=== PATIENT | female | born 1985 | race Caucasian/White ===

== ENCOUNTER 2016-03-21 15:05 | Emergency (ER) | payer OTHER ==
[2016-03-21] MEDS ORDERED: MAG HYDROX/AL HYDROX/SIMETH SUSP 30 ML UDCUP PO ONE (15:25)
[2016-03-21] MEDS ORDERED: LIDOCAINE 2% VISCOUS SOLN 20 ML UDCUP PO ONE (15:25)
--- NOTE | 2016-03-21 15:25 | ER Document Report ---
ED Medical Screen (RME) - General Chief Complaint: Epigastric Pain Stated Complaint: UPPER ABDOMINAL PAIN Time seen by provider: 15:24 Mode of Arrival: Ambulatory Information source: Patient Notes: 31-year-old female complaining of epigastric abdominal pain that started 2 days ago. It causes nausea. Radiation. No fever or chills. No diarrhea. She has a history of achalasia which was repaired one year ago. Occasional alcohol. TRAVEL OUTSIDE OF THE [place] IN LAST 30 DAYS: No - Related Data Allergies/Adverse Reactions: morphine [Morphine] Allergy (Verified 08/04/14 09:46) Past Medical History - Past Medical History Cardiac Medical History: Denies: Hx Coronary Artery Disease, Hx Heart Attack, Hx Hypertension Pulmonary Medical History: Denies: Hx Asthma, Hx Bronchitis, Hx COPD, Hx Pneumonia Neurological Medical History: Denies: Hx Cerebrovascular Accident, Hx Seizures Musculoskeltal Medical History: Reports Hx Arthritis - RIGHT HAND Past Surgical History: Reports: Hx Section. Denies: Hx Hysterectomy - Immunizations Hx Diphtheria, Pertussis, Tetanus Vaccination: Yes Physical Exam - Vital signs Vitals: Temp Pulse Resp BP Pulse Ox 98.8 F 85 16 127/85 H 99 03/21/16 15:13 03/21/16 15:13 03/21/16 15:13 03/21/16 15:13 03/21/16 15:13 Course - Vital Signs Vital signs: Temp Pulse Resp BP Pulse Ox 98.8 F 85 16 127/85 H 99 03/21/16 15:13 03/21/16 15:13 03/21/16 15:13 03/21/16 15:13 03/21/16 15:13
[2016-03-21 15:46] LABS: ABSOLUTE EOSINOPHILS # (AUTO) 0.1 10^3/uL (0.0-0.6); ABSOLUTE LYMPHOCYTES (AUTO) 3.2 10^3/uL (0.5-4.7); ABSOLUTE MONOCYTES (AUTO) 0.6 10^3/uL (0.1-1.4); BASOPHILS % (AUTO) 0.5 % (0-2); EOSINOPHILS % (AUTO) 1.9 % (0-6); HEMATOCRIT 41.3 % (36.0-47.0); HGB HCT DIFFERENCE 0.7; LYMPHOCYTES % (AUTO) 39.7 % (13-45); MEAN CORPUSCULAR HEMOGLOBIN 30.9 pg (27.0-33.4); MEAN CORPUSCULAR HGB CONC 33.9 g/dL (32.0-36.0); MEAN CORPUSCULAR VOLUME 91 fl (80-97); MONOCYTES % (AUTO) 7.1 % (3-13); RED BLOOD COUNT 4.53 10^6/uL (3.72-5.28); RED CELL DISTRIBUTION WIDTH 12.5 % (11.5-14.0); SEGMENTED NEUTROPHILS % (AUTO) 50.8 % (42-78)
[2016-03-21 16:01] LABS: APPEARANCE,URINE CLEAR; BILIRUBIN,URINE NEGATIVE (NEGATIVE); GLUCOSE, URINE NEGATIVE (NEGATIVE); KETONES,URINE NEGATIVE (NEGATIVE); LEUKOCYTE ESTERASE,URINE NEGATIVE (NEGATIVE); NITRITE,URINE NEGATIVE (NEGATIVE); PROTEIN,URINE NEGATIVE (NEGATIVE); URINE SPECIFIC GRAVITY 1.008; UROBILINOGEN,URINE NEGATIVE mg/dL (<2.0)
[2016-03-21 16:12] LABS: ALANINE AMINOTRANSFERASE 28 U/L (9-52); ALBUMIN 4.1 g/dL (3.5-5.0); ALKALINE PHOSPHATASE 80 U/L (38-126); ANION GAP 12 (5-19); ASPARTATE AMINO TRANSFERASE 22 U/L (14-36); BILIRUBIN,TOTAL 0.3 mg/dL (0.2-1.3); BLOOD UREA NITROGEN 8 mg/dL (7-20); CALCIUM 9.9 mg/dL (8.4-10.2); CARBON DIOXIDE 30 mmol/L (22-30); CHLORIDE 103 mmol/L (98-107); CREATININE RESULT 0.69 mg/dL (0.52-1.25); GLUCOSE 91 mg/dL (75-110); LIPASE 76.3 U/L (23-300); POTASSIUM 4.1 mmol/L (3.6-5.0); SODIUM 144.6 mmol/L (137-145); TOTAL PROTEIN 7.3 g/dL (6.3-8.2)
--- NOTE | 2016-03-21 19:24 | ER Document Report ---
ED GI/ - General Chief Complaint: Epigastric Pain Stated Complaint: UPPER ABDOMINAL PAIN Mode of Arrival: Ambulatory Information source: Patient Notes: 31-year-old female presents to the emergency department complaining of mid upper abdomen/epigastric pain over the last 2 days. Patient reports history of esophageal achalasia with procedure on 12/24 at [facility]. Reports has had intermittent similar symptoms yesterday approximately once per month since procedure which self resolved however current episode has been persistent and worse in intensity than her previous episodes. Describes pain as sharp to mid epigastric area and states "feels like there is something stuck". Reports symptoms are worse when eating or drinking. Denies fever, nausea or vomiting, chest pain, hematemesis, or shortness of breath. TRAVEL OUTSIDE OF THE [place] IN LAST 30 DAYS: No - HPI Patient complains to provider of: Abdominal pain Onset: Yesterday Timing/Duration: Intermittent, Persistent Quality of pain: Burning, Fullness, Sharp Severity at maximum: Moderate Severity in ED: Almost gone Pain Level: 1 Location: Epigastric Similar symptoms previously: Yes Recently seen / treated by doctor: No - Related Data Allergies/Adverse Reactions: morphine [Morphine] Allergy (Verified 08/04/14 09:46) Past Medical History - General Information source: Patient - Social History Smoking Status: Never Smoker Frequency of alcohol use: None Drug Abuse: None Lives with: Family Family History: Reviewed & Not Pertinent Patient has suicidal ideation: No Patient has homicidal ideation: No - Past Medical History Cardiac Medical History: Denies: Hx Coronary Artery Disease, Hx Heart Attack, Hx Hypertension Pulmonary Medical History: Denies: Hx Asthma, Hx Bronchitis, Hx COPD, Hx Pneumonia Neurological Medical History: Denies: Hx Cerebrovascular Accident, Hx Seizures GI Medical History: Reports: Hx Gastroesophageal Reflux Disease, Hx Hiatal Hernia, Other - Achalasia Musculoskeltal Medical History: Reports Hx Arthritis - RIGHT HAND Past Surgical History: Reports: Hx Abdominal Surgery - Esophageal achalasia repair, Hx Section. Denies: Hx Hysterectomy - Immunizations Hx Diphtheria, Pertussis, Tetanus Vaccination: Yes Review of Systems - Review of Systems Constitutional: No symptoms reported EENT: No symptoms reported Cardiovascular: No symptoms reported Respiratory: No symptoms reported Gastrointestinal: See HPI Genitourinary: No symptoms reported Female Genitourinary: No symptoms reported Musculoskeletal: No symptoms reported Skin: No symptoms reported Hematologic/Lymphatic: No symptoms reported Neurological/Psychological: No symptoms reported -: Yes All other systems reviewed and negative Physical Exam - Vital signs Vitals: Temp Pulse Resp BP Pulse Ox 98.8 F 85 16 127/85 H 99 03/21/16 15:13 03/21/16 15:13 03/21/16 15:13 03/21/16 15:13 03/21/16 15:13 Interpretation: Normal - General General appearance: Appears well, Alert In distress: None - HEENT Head: Normocephalic, Atraumatic Eyes: Normal Pupils: PERRL - Respiratory Respiratory status: No respiratory distress Chest status: Nontender Breath sounds: Normal Chest palpation: Normal - Cardiovascular Rhythm: Regular Heart sounds: Normal auscultation Murmur: No Pulses: Normal: Radial Normal capillary refill: Yes - Abdominal Inspection: Normal Distension: No distension Bowel sounds: Normal Tenderness: Nontender - No epigastric/upper abdominal tenderness with palpation Organomegaly: No organomegaly - Back Back: Normal, Nontender - Extremities General upper extremity: Normal inspection, Normal color, Normal ROM General lower extremity: Normal inspection, Normal color, Normal ROM, Normal weight bearing - Neurological Neuro grossly intact: Yes Cognition: Normal Orientation: AAOx4 Tsering Coma Scale Eye Opening: Spontaneous Tsering Coma Scale Verbal: Oriented Tsering Coma Scale Motor: Obeys Commands Kyle Coma Scale Total: 15 Speech: Normal Motor strength normal: LUE, RUE, LLE, RLE Sensory: Normal - Psychological Associated symptoms: Normal affect, Normal mood - Skin Skin Temperature: Warm Skin Moisture: Dry Skin Color: Normal Skin Turgor: Elastic Course - Re-evaluation Re-evalutation: 03/21/16 19:30 Patient hemodynamically stable, in no distress, afebrile. Tolerating by mouth fluids without difficulty or vomiting. Labs unremarkable. Barium swallow/ esophagram was obtained after consulting patient presentation and hx with ED physician Dr. Lock and GI on-call Dr. Ko. Esophagram showed esophageal spasm, small hiatal hernia, and postop changes without ulceration or other complications per radiologist Dr. Damon. Patient states has taken nitroglycerin in the past with undesirable side effects. Prescribe H2 pete and PPI. Patient appears stable for discharge and agrees with home care, follow -up with GI, ED return precautions. Findings and plan discussed with ED physician Dr. Hayde who concurs with evaluation and treatment. - Vital Signs Vital signs: Temp Pulse Resp BP Pulse Ox 98.8 F 85 16 127/85 H 99 03/21/16 15:13 03/21/16 15:13 03/21/16 15:13 03/21/16 15:13 03/21/16 15:13 - Laboratory Result Diagrams: 03/21/16 15:25 03/21/16 15:25 Laboratory results interpreted by me: 03/21/16 15:25 Urine Blood MODERATE H - Diagnostic Test Radiology reviewed: Image reviewed, Reports reviewed Discharge - Discharge Clinical Impression: Esophageal spasm Condition: Stable Disposition: HOME, SELF-CARE Instructions: Esophageal Spasm ([facility]), Acid-Suppressing Medication ([facility]), Prilosec (Acid Pump Inhibitor) ([facility]) Additional Instructions: Drink warmed liquids and soft foods. Follow-up with GI tomorrow as discussed. Call [facility] GI clinic at [phone] for appointment. You may follow-up with the GI specialist provided if you're unable to follow up at the [facility] GI clinic. Return to the emergency department for any worsening symptoms or concerns. Prescriptions: Omeprazole Magnesium [Prilosec Otc] 20 mg PO DAILY #15 tablet. Ranitidine HCl [Zantac 150 mg Tablet] 150 mg PO BID #30 tablet Forms: Return to Work Referrals: HINA KO MD [ACTIVE STAFF] - Follow up tomorrow
[2016-03-21 20:17] VITALS: BP 124/90
== END 2016-03-21 19:45 | disposition home or self-care (01) ==
LOC: ER 15:05
DX: K22.4 Dyskinesia of esophagus (principal); K44.9 Diaphragmatic hernia without obstruction or gangrene; R10.13 Epigastric pain; Z98.890 Other specified postprocedural states; Z88.5 Allergy status to narcotic agent
CPT/HCPCS: 99284; 36415; 83690; 84703; 85025; 80053; 81001; 74220; J3490

== ENCOUNTER 2016-03-27 11:21 | Day surgery (SDC) | payer OTHER ==
[~2016-03-27 11:21] MED LIST: PROPOFOL INJ 200 MG/20 ML VIAL IV ONE
--- NOTE | 2016-03-27 12:27 | Operative Report ---
Operative Report DATE OF SURGERY: 03/27/16 Operative Report: The risks benefits and alternatives of the procedure explained to the patient in detail and informed consent is obtained that GIF Olympus video scope was inserted into the patient's mouth and hypopharynx the esophagus is identified intubated and insufflated the scope was then advanced through the esophagus stomach and duodenum retroflexion maneuver is done the esophagus stomach and first and second portions of the duodenum examined PREOPERATIVE DIAGNOSIS: Epigastric pain, question Maria Isabel fundoplication, patient states that she had achalasia POSTOPERATIVE DIAGNOSIS: Maria Isabel fundoplication visualized. Gastritis. No ulcers noted OPERATION: EGD with biopsy SURGEON: HINA KO ANESTHESIA: LMAC TISSUE REMOVED OR ALTERED: Gastric specimens x2 COMPLICATIONS: None. ESTIMATED BLOOD LOSS: none. INTRAOPERATIVE FINDINGS: Normal, patent esophagus. Gastritis. First and second portions of the duodenum normal PROCEDURE: Patient tolerated the procedure well. No immediate postprocedure complications are noted. Patient is discharged in good condition. Discharge date 03/27/2016. Discharge diet: Regular. Discharge activity: Regular. Patient does have a 2-3 week follow-up to discuss findings. We'll follow-up on biopsies. Patient is instructed to go to the emergency room or call the office should there be any further problems or questions.
[2016-03-27 13:07] VITALS: BP 111/62
== END 2016-03-27 13:00 | disposition home or self-care (01) ==
LOC: END 11:21
PROVIDERS: ATTEND Internal Medicine Gastroenterology
PROC: 0DB68ZX Excision of Stomach, Via Natural or Artificial Opening Endoscopic, Diagnostic (ICD-10-PCS; principal; 2016-03-27 15:00)
DX: K29.50 Unspecified chronic gastritis without bleeding (principal); Z79.1 Long term (current) use of non-steroidal anti-inflammatories (NSAID); Z88.5 Allergy status to narcotic agent
CPT/HCPCS: 43239; 88342 ×2; 88305 ×2; J2704; 740

== ENCOUNTER 2017-08-19 15:06 | Emergency (ER) | payer OTHER ==
--- NOTE | 2017-08-19 15:33 | ER Document Report ---
ED Medical Screen (RME) - General Chief Complaint: Chest Pain Stated Complaint: SHARP CHEST PAIN Time Seen by Provider: 08/19/17 15:29 Mode of Arrival: Ambulatory Information source: Patient Notes: 32-year-old female with a history of achalasia status post laparoscopic surgery correction ([facility]), active smoker (half pack per day) presents to the emergency room with epigastric pain radiating to the back. Patient denies any history of gallstones, peptic ulcer disease. The discomforts been going on since (3 days ago). Patient is currently on Zantac. Last normal menstrual period 1 month ago. 1 para 1. Patient's abdomen is soft with no appreciable tenderness in triage. I have greeted and performed a rapid initial assessment of this patient. A comprehensive ED assessment and evaluation of the patient, analysis of test results and completion of medical decision making process we will be contacted by additional ED providers. TRAVEL OUTSIDE OF THE [place] IN LAST 30 DAYS: No - Related Data Allergies/Adverse Reactions: morphine [Morphine] Allergy (Mild, Verified 08/19/17 15:22) BRITTANI MEDINA Past Medical History - Social History Chew tobacco use (# tins/day): No Frequency of alcohol use: Occasional Drug Abuse: None - Past Medical History Cardiac Medical History: Denies: Hx Coronary Artery Disease, Hx Heart Attack, Hx Hypertension Pulmonary Medical History: Denies: Hx Asthma, Hx Bronchitis, Hx COPD, Hx Pneumonia Neurological Medical History: Denies: Hx Cerebrovascular Accident, Hx Seizures Renal/ Medical History: Denies: Hx Peritoneal Dialysis GI Medical History: Reports: Hx Gastroesophageal Reflux Disease, Hx Hiatal Hernia Musculoskeltal Medical History: Reports Hx Arthritis - RIGHT HAND Past Surgical History: Reports: Hx Abdominal Surgery - Esophageal achalasia repair, Hx Section. Denies: Hx Hysterectomy - Immunizations Hx Diphtheria, Pertussis, Tetanus Vaccination: Yes Physical Exam - Vital signs Vitals: Temp Pulse Resp BP Pulse Ox 98.8 F 77 16 139/88 H 98 08/19/17 15:20 08/19/17 15:20 08/19/17 15:20 08/19/17 15:20 08/19/17 15:20 Course - Vital Signs Vital signs: Temp Pulse Resp BP Pulse Ox 98.8 F 77 16 139/88 H 98 08/19/17 15:20 08/19/17 15:20 08/19/17 15:20 08/19/17 15:20 08/19/17 15:20
--- NOTE | 2017-08-19 15:53 | RADIOLOGY REPORT (SQ) ---
EXAM DESCRIPTION: CHEST 2 VIEWS COMPLETED DATE/TIME: 08/19/2017 3:41 pm REASON FOR STUDY: epigastric pain COMPARISON: Abdominal series 11/05/2011. EXAM PARAMETERS: NUMBER OF VIEWS: two views TECHNIQUE: Digital Frontal and Lateral radiographic views of the chest acquired. RADIATION DOSE: NA LIMITATIONS: none FINDINGS: LUNGS AND PLEURA: No consolidation, pneumothorax or pleural effusion. MEDIASTINUM AND HILAR STRUCTURES: No masses or contour abnormalities. HEART AND VASCULAR STRUCTURES: Heart normal size. No evidence for failure. BONES: No acute findings. HARDWARE: None in the chest. IMPRESSION: No acute radiographic finding in the chest. TECHNICAL DOCUMENTATION: JOB ID: [id number] 2010 [employer]- All Rights Reserved Reading location - IP/workstation name: [email or web address]
[2017-08-19 15:58] LABS: ABSOLUTE EOSINOPHILS # (AUTO) 0.1 10^3/uL (0.0-0.6); ABSOLUTE MONOCYTES (AUTO) 0.7 10^3/uL (0.1-1.4); BASOPHILS % (AUTO) 0.6 % (0-2); EOSINOPHILS % (AUTO) 1.2 % (0-6); HEMATOCRIT 44.4 % (36.0-47.0); HEMOGLOBIN 15.1 g/dL (12.0-15.5); LYMPHOCYTES % (AUTO) 25.5 % (13-45); MEAN CORPUSCULAR HEMOGLOBIN 32.4 pg (27.0-33.4); MEAN CORPUSCULAR HGB CONC 33.9 g/dL (32.0-36.0); MEAN CORPUSCULAR VOLUME 96 fl (80-97); MONOCYTES % (AUTO) 8.7 % (3-13); PLATELET COUNT 295 10^3/uL (150-450); RED BLOOD COUNT 4.65 10^6/uL (3.72-5.28); RED CELL DISTRIBUTION WIDTH 13.3 % (11.5-14.0); TOTAL CELLS COUNTED % (AUTO) 100 %; WHITE BLOOD COUNT 7.9 10^3/uL (4.0-10.5)
[2017-08-19 16:16] LABS: ALANINE AMINOTRANSFERASE 29 U/L (9-52); ALBUMIN 4.7 g/dL (3.5-5.0); ALKALINE PHOSPHATASE 108 U/L (38-126); ANION GAP 13 (5-19); ASPARTATE AMINO TRANSFERASE 29 U/L (14-36); BILIRUBIN,DIRECT 0.4 mg/dL (0.0-0.4); BILIRUBIN,TOTAL 0.8 mg/dL (0.2-1.3); BLOOD UREA NITROGEN 9 mg/dL (7-20); CARBON DIOXIDE 27 mmol/L (22-30); CHLORIDE 104 mmol/L (98-107); GLUCOSE 87 mg/dL (75-110); LIPASE 50.5 U/L (23-300); POTASSIUM 4.7 mmol/L (3.6-5.0); SODIUM 143.8 mmol/L (137-145); TOTAL PROTEIN 7.7 g/dL (6.3-8.2)
--- NOTE | 2017-08-19 17:11 | ER Document Report ---
ED General - General Chief Complaint: Chest Pain Stated Complaint: SHARP CHEST PAIN Time Seen by Provider: 08/19/17 15:29 Mode of Arrival: Ambulatory Information source: Patient Notes: 32-year-old female presents emergency department with a 3 day history of sharp and stabbing sensation in the left upper quadrant of the abdomen. Patient states that it is intermittent in nature. She denies any alleviating or exacerbating factors. She is having some associated nausea but denies any vomiting, diarrhea, constipation, dysuria, hematuria. Patient states her last menstrual period was 2 weeks ago. Patient does have a history of achalasia. She denies any other medical problems. TRAVEL OUTSIDE OF THE [place] IN LAST 30 DAYS: No - HPI Patient complains to provider of: LUQ abdominal pain Onset: Last week Onset/Duration: Gradual Severity: None Pain Level: 4 Associated symptoms: Nausea Exacerbated by: Denies Relieved by: Denies Similar symptoms previously: No Recently seen / treated by doctor: No - Related Data Allergies/Adverse Reactions: morphine [Morphine] Allergy (Mild, Verified 08/19/17 15:22) BRITTANI MEDINA Past Medical History - General Information source: Patient - Social History Smoking Status: Current Some Day Smoker Chew tobacco use (# tins/day): No Frequency of alcohol use: Occasional Drug Abuse: None Family History: Reviewed & Not Pertinent Patient has suicidal ideation: No Patient has homicidal ideation: No - Past Medical History Cardiac Medical History: Denies: Hx Coronary Artery Disease, Hx Heart Attack, Hx Hypertension Pulmonary Medical History: Denies: Hx Asthma, Hx Bronchitis, Hx COPD, Hx Pneumonia Neurological Medical History: Denies: Hx Cerebrovascular Accident, Hx Seizures Renal/ Medical History: Denies: Hx Peritoneal Dialysis GI Medical History: Reports: Hx Gastroesophageal Reflux Disease, Hx Hiatal Hernia Musculoskeltal Medical History: Reports Hx Arthritis - RIGHT HAND Past Surgical History: Reports: Hx Abdominal Surgery - Esophageal achalasia repair, Hx Section. Denies: Hx Hysterectomy - Immunizations Hx Diphtheria, Pertussis, Tetanus Vaccination: Yes Review of Systems - Review of Systems Constitutional: No symptoms reported EENT: No symptoms reported Cardiovascular: No symptoms reported Respiratory: No symptoms reported Gastrointestinal: Abdominal pain, Nausea Genitourinary: No symptoms reported Musculoskeletal: No symptoms reported Skin: No symptoms reported Neurological/Psychological: No symptoms reported -: Yes All other systems reviewed and negative Physical Exam - Vital signs Vitals: Temp Pulse Resp BP Pulse Ox 98.8 F 77 16 139/88 H 98 08/19/17 15:20 08/19/17 15:20 08/19/17 15:20 08/19/17 15:20 08/19/17 15:20 Interpretation: Normal - Notes Notes: PHYSICAL EXAMINATION: GENERAL: Well-appearing, well-nourished and in no acute distress. HEAD: Atraumatic, normocephalic. EYES: Pupils equal round and reactive to light, extraocular movements intact, conjunctiva are normal. ENT: Nares patent, oropharynx clear without exudates. Moist mucous membranes. NECK: Normal range of motion, supple without lymphadenopathy LUNGS: Breath sounds clear to auscultation bilaterally and equal. No wheezes rales or rhonchi. HEART: Regular rate and rhythm without murmurs ABDOMEN: Soft, tenderness to palpation in the LUQ. Nondistended abdomen. No guarding, no rebound. Normal active bowel sounds Female : deferred Musculoskeletal: Normal range of motion, no pitting or edema. No cyanosis. NEUROLOGICAL: Cranial nerves grossly intact. Normal speech, normal gait. Normal sensory, motor exams PSYCH: Normal mood, normal affect. SKIN: Warm, Dry, normal turgor, no rashes or lesions noted. Course - Re-evaluation Re-evalutation: 08/19/17 18:36 Labs and imaging obtained. No acute process was identified. X-ray was unremarkable. Ultrasound of the abdomen was done and did not show an acute process. Patient was given Pepcid, GI cocktail, Phenergan. Patient states that the medication has not help significantly with her left upper quadrant pain. Patient offered CT. Patient declines a CT at this time. Patient states that she will follow-up outpatient with her primary care physician. She was told to continue taking her medication as directed, to follow-up with her primary care physician this week, and to return to the emergency department for worsening symptoms. Patient is agreeable with plan of care. - Vital Signs Vital signs: Temp Pulse Resp BP Pulse Ox 98.8 F 77 16 139/88 H 98 08/19/17 15:20 08/19/17 15:20 08/19/17 15:20 08/19/17 15:20 08/19/17 15:20 - Laboratory Result Diagrams: 08/19/17 15:45 06/10/18 15:45 - EKG Interpretation by Me EKG shows normal: Sinus rhythm Rate: Normal - Ventricular rate 74, QRS duration 76, QTC 395, normal sinus rhythm, no ischemic changes Discharge - Discharge Clinical Impression: Left upper quadrant abdominal pain of unknown etiology Condition: Stable Disposition: HOME, SELF-CARE Instructions: Abdominal Pain ([facility]) Additional Instructions: Take over the counter medication for symptom relief. Follow up with your primary care physician this week. Return to the emergency department for worsening symptoms. Forms: Parent Work Note Referrals: ERICK VAUGHAN DO [Primary Care Provider] - Follow up as needed
[2017-08-19] MEDS ORDERED: MAG HYDROX/AL HYDROX/SIMETH SUSP 30 ML UDCUP PO ONE (17:16)
[2017-08-19] MEDS ORDERED: LIDOCAINE 2% VISCOUS SOLN 20 ML UDCUP PO ONE (17:16)
[2017-08-19] MEDS ORDERED: ONDANSETRON HCL INJ/PF 4 MG/2 ML SDV IV ONE (17:16)
[2017-08-19] MEDS ORDERED: METOCLOPRAMIDE HCL ORAL SOLN 10 MG/10 ML UDCUP PO ONE (17:16)
[2017-08-19] MEDS ORDERED: FAMOTIDINE INJ/PF 20 MG/2 ML SDV IV ONE (17:16)
[2017-08-19] MEDS ORDERED: PROMETHAZINE HCL INJ 25 MG/1 ML VIAL IV ONE (17:18)
--- NOTE | 2017-08-19 17:23 | RADIOLOGY REPORT (SQ) ---
EXAM DESCRIPTION: U/S ABDOMEN LIMITED W/O DOP COMPLETED DATE/TIME: 08/19/2017 4:57 pm REASON FOR STUDY: upper abdominal pain COMPARISON: None. TECHNIQUE: Grayscale images acquired of the right upper quadrant and recorded on PACS. Additional se lected color Doppler and spectral images recorded. LIMITATIONS: Acoustical interference from fat or from air in the bowel. FINDINGS: PANCREAS: The pancreas is partially obscured by overlying bowel gas. The visualized pancr eas in the midline is unremarkable. LIVER: Measures 13 cm. There is increased echogenicity, suggestive of fatty infiltration. LIVER VASCULATURE: Normal directional flow of the main portal vein. GALLBLADDER: No stones. Normal wall thickness. No pericholecystic fluid. ULTRASOUND-DETECTED COURTNEY'S SIGN: Negative. INTRAHEPATIC DUCTS AND COMMON DUCT: CBD and intrahepatic ducts normal caliber. INFERIOR VENA CAVA: Obscured by overlying bowel gas. AORTA: No aneurysm at the visualized segments. RIGHT KIDNEY: Measures 11.8 cm in length. Normal echogenicity. No hydronephrosis. No calcifications. PERITONEAL CAVITY AND RIGHT PLEURAL SPACE: No ascites or effusion. IMPRESSION: No cholelithiasis or biliary ductal dilation. Fatty infiltration of the liver. TECHNICAL DOCUMENTATION: JOB ID: [id number] 2010 [employer]- All Rights Reserved Reading location - IP/workstation name: [email or web address]
[2017-08-19] MEDS ORDERED: FAMOTIDINE 20 MG TABLET PO ONE (17:31)
[2017-08-19 18:40] VITALS: BP 123/92
--- NOTE | 2017-08-20 07:35 | EKG REPORT ---
SEVERITY:- NORMAL ECG - SINUS RHYTHM : Confirmed by: Mychal Snider MD 20-Aug-2017 07:34:52
== END 2017-08-19 18:45 | disposition home or self-care (01) ==
LOC: ER 15:06
DX: R10.12 Left upper quadrant pain (principal); R10.812 Left upper quadrant abdominal tenderness; R11.0 Nausea; F17.200 Nicotine dependence, unspecified, uncomplicated; Z87.19 Personal history of other diseases of the digestive system; Z88.5 Allergy status to narcotic agent
CPT/HCPCS: 93005; 99285; 36415; 84702; 83690; 85025; 80053; 71046; 76705; 93010; J3490

== ENCOUNTER 2019-02-10 15:16 | Emergency (ER) | payer OTHER ==
[2019-02-10] MEDS ORDERED: ONDANSETRON HCL INJ/PF 4 MG/2 ML SDV IV ONE (16:19)
[2019-02-10] MEDS ORDERED: NORMAL SALINE 1000 ML 1,000 ML IV ONE (16:19)
--- NOTE | 2019-02-10 16:20 | ER Document Report ---
ED Medical Screen (RME) - General Chief Complaint: Abdominal Pain Stated Complaint: FLANK PAIN Time Seen by Provider: 02/10/19 16:13 Primary Care Provider: ERICK VAUGHAN DO [Primary Care Provider] - Follow up as needed Information source: Patient Notes: Patient presents complaining of right flank pain that radiates around to right lower quadrant and lower pelvic area. Patient reports pain started 2 days ago. Patient does report nausea and decreased appetite. No vomiting or diarrhea. No fever. No urinary symptoms. I have greeted and performed a rapid initial assessment of this patient. A comprehensive ED assessment and evaluation of the patient, analysis of test results and completion of the medical decision making process will be conducted by additional ED providers. TRAVEL OUTSIDE OF THE [place] IN LAST 30 DAYS: No - Related Data Allergies/Adverse Reactions: morphine [Morphine] Allergy (Mild, Verified 08/19/17 15:22) BRITTANI MEDINA Home Medications: No home medications Past Medical History - Social History Chew tobacco use (# tins/day): No Frequency of alcohol use: Occasional Drug Abuse: None - Past Medical History Cardiac Medical History: Denies: Hx Coronary Artery Disease, Hx Heart Attack, Hx Hypertension Pulmonary Medical History: Denies: Hx Asthma, Hx Bronchitis, Hx COPD, Hx Pneumonia Neurological Medical History: Denies: Hx Cerebrovascular Accident, Hx Seizures Renal/ Medical History: Denies: Hx Peritoneal Dialysis GI Medical History: Reports: Hx Gastroesophageal Reflux Disease, Hx Hiatal Hernia Musculoskeltal Medical History: Reports Hx Arthritis - RIGHT HAND Past Surgical History: Reports: Hx Abdominal Surgery - Esophageal achalasia repair, Hx Section. Denies: Hx Hysterectomy - Immunizations Hx Diphtheria, Pertussis, Tetanus Vaccination: Yes Physical Exam - Vital signs Vitals: Temp Pulse Resp BP Pulse Ox 99.1 F 84 20 163/92 H 100 02/10/19 15:26 02/10/19 15:26 02/10/19 15:26 02/10/19 15:26 02/10/19 15:26 - Abdominal Tenderness: Tender - Lower pelvic, right lower quadrant tenderness Course - Vital Signs Vital signs: Temp Pulse Resp BP Pulse Ox 99.1 F 84 20 163/92 H 100 02/10/19 15:26 02/10/19 15:26 02/10/19 15:26 02/10/19 15:26 02/10/19 15:26 Doctor's Discharge - Discharge Referrals: ERICK VAUGHAN DO [Primary Care Provider] - Follow up as needed
[2019-02-10 17:30] LABS: ABSOLUTE EOSINOPHILS # (AUTO) 0.1 10^3/uL (0.0-0.6); ABSOLUTE LYMPHOCYTES (AUTO) 3.4 10^3/uL (0.5-4.7); ABSOLUTE MONOCYTES (AUTO) 0.6 10^3/uL (0.1-1.4); ABSOLUTE NEUT (AUTO) 7.2 10^3/uL (1.7-8.2); BASOPHILS % (AUTO) 0.3 % (0-2); EOSINOPHILS % (AUTO) 1.1 % (0-6); HEMATOCRIT 41.7 % (36.0-47.0); LYMPHOCYTES % (AUTO) 29.5 % (13-45); MEAN CORPUSCULAR HEMOGLOBIN 33.5 pg (27.0-33.4); MEAN CORPUSCULAR HGB CONC 33.6 g/dL (32.0-36.0); MEAN CORPUSCULAR VOLUME 99 fl (80-97); MONOCYTES % (AUTO) 5.3 % (3-13); PLATELET COUNT 345 10^3/uL (150-450); RED BLOOD COUNT 4.19 10^6/uL (3.72-5.28); RED CELL DISTRIBUTION WIDTH 13.3 % (11.5-14.0); SEGMENTED NEUTROPHILS % (AUTO) 63.8 % (42-78); TOTAL CELLS COUNTED % (AUTO) 100 %; WHITE BLOOD COUNT 11.4 10^3/uL (4.0-10.5)
[2019-02-10 18:00] LABS: ALBUMIN 4.6 g/dL (3.5-5.0); ALKALINE PHOSPHATASE 95 U/L (38-126); ANION GAP 11 (5-19); ASPARTATE AMINO TRANSFERASE 30 U/L (14-36); BILIRUBIN,DIRECT 0.1 mg/dL (0.0-0.4); BILIRUBIN,TOTAL 0.5 mg/dL (0.2-1.3); BLOOD UREA NITROGEN 7 mg/dL (7-20); CALCIUM 9.6 mg/dL (8.4-10.2); CARBON DIOXIDE 23 mmol/L (22-30); CHLORIDE 105 mmol/L (98-107); GLUCOSE 91 mg/dL (75-110); POTASSIUM 4.3 mmol/L (3.6-5.0); TOTAL PROTEIN 7.8 g/dL (6.3-8.2)
[2019-02-10] MEDS ORDERED: KETOROLAC TROMETHAMINE INJ/PF 30 MG/1 ML SDV IV ONE (18:01)
--- NOTE | 2019-02-10 18:13 | RADIOLOGY REPORT (SQ) ---
EXAM DESCRIPTION: U/S ABDOMEN LIMITED W/O DOP COMPLETED DATE/TIME: 02/10/2019 5:54 pm REASON FOR STUDY: RUQ pain, nausea COMPARISON: 08/19/2017 TECHNIQUE: Dynamic and static grayscale images acquired of the abdomen and recorded on PACS. Additio nal selected color Doppler and spectral images recorded. LIMITATIONS: Some structures not well visualized. FINDINGS: PANCREAS: Not well visualized. LIVER: No masses. Echotexture normal. LIVER VASCULATURE: Normal directional flow of the main portal vein and hepatic veins. GALLBLADDER: No stones. Normal wall thickness. No pericholecystic fluid. ULTRASOUND-DETECTED COURTNEY'S SIGN: Negative. INTRAHEPATIC DUCTS AND COMMON DUCT: CBD and intrahepatic ducts normal caliber. No filling defects. INFERIOR VENA CAVA: Normal flow. AORTA: No aneurysm. RIGHT KIDNEY: Normal size measuring 11.7 cm. Normal echogenicity. No solid or suspicious masses. No hydronephrosis. No calcifications. PERITONEAL AND RIGHT PLEURAL SPACE: No ascites or effusions. OTHER: No other significant findings. IMPRESSION: Unremarkable right upper quadrant ultrasound as visualized. TECHNICAL DOCUMENTATION: JOB ID: [id number]- All Rights Reserved Reading location - IP/workstation name: [email or web address]
[2019-02-10 18:45] LABS: APPEARANCE,URINE CLEAR; BILIRUBIN,URINE NEGATIVE (NEGATIVE); COLOR,URINE YELLOW; GLUCOSE, URINE NEGATIVE (NEGATIVE); KETONES,URINE NEGATIVE (NEGATIVE); LEUKOCYTE ESTERASE,URINE NEGATIVE (NEGATIVE); NITRITE,URINE NEGATIVE (NEGATIVE); PROTEIN,URINE NEGATIVE (NEGATIVE); URINE SPECIFIC GRAVITY 1.012; UROBILINOGEN,URINE NEGATIVE mg/dL (<2.0)
--- NOTE | 2019-02-10 19:07 | RADIOLOGY REPORT (SQ) ---
EXAM DESCRIPTION: U/S NON OB PEL TV W/DOPPLER COMPLETED DATE/TIME: 02/10/2019 5:54 pm REASON FOR STUDY: pelvic pain LMP unknown COMPARISON: None. TECHNIQUE: Dynamic and static grayscale images acquired of the pelvis via transvaginal approach and recorded on PACS. Additional selected color Doppler and spectral images recorded. LIMITATIONS: None. FINDINGS: UTERUS: Contour normal. No mass. ENDOMETRIAL STRIPE: No focal or generalized thickening. No masses. CERVIX: 3.4 cm. No nabothian cysts. RIGHT OVARY AND DOPPLER: Normal size. No worrisome masses. Normal arterial vascular flow without evid ence for torsion. LEFT OVARY AND DOPPLER: Normal size. No worrisome masses. Normal arterial vascular flow without evide nce for torsion. FREE FLUID: None noted. OTHER: No other significant finding. MEASUREMENTS: UTERUS: 0.9 x 5.1 x 4.6 cm. ENDOMETRIAL STRIPE: 7 mm. RIGHT OVARY: 2.1 x 1.9 x 2.2 cm. LEFT OVARY: 2.4 x 2.2 x 2.5 cm. IMPRESSION: NORMAL TRANSVAGINAL PELVIC ULTRASOUND. TECHNICAL DOCUMENTATION: JOB ID: [id number]- All Rights Reserved Rev-07/27 Reading location - IP/workstation name: [email or web address]
[2019-02-10] MEDS ORDERED: FENTANYL CITRATE INJ/PF 100 MCG/2 ML AMPUL IV ONE (19:09)
[2019-02-10 20:19] VITALS: BP 130/94
[2019-02-10] MEDS ORDERED: ONDANSETRON ODT 4 MG TAB (6 TAB/ER DISP) PO PRN (20:28)
--- NOTE | 2019-02-10 20:28 | RADIOLOGY REPORT (SQ) ---
EXAM DESCRIPTION: CLINICAL HISTORY: 33 years Female RLQ pain, nausea COMPARISON: None TECHNIQUE: Axial images with IV contrast. Contrast dose not available. Sagittal coronal reconstruction. This exam was performed according to our departmental dose-optimization program, which includes automated exposure control, adjustment of the mA and/or kV according to patient size and/or use of iterative reconstruction technique.. FINDINGS: Lung bases are unremarkable. Mild dilatation of the distal esophagus without obvious lesion. Liver, spleen, pancreas, biliary system, adrenal glands, kidneys, aorta and para-aortic regions are unremarkable. Marrow mildly longer umbilical hernia with herniation of fat. Mild dilatation of distal small bowel loops. No evidence for acute appendicitis. Appearance of mild thickening of the ascending colon. Series 3 images 47-48 may be real or artifact from contraction. The rest of the colon is unremarkable. CT of the pelvis demonstrates an anteflexed unremarkable uterus. Adnexa are not enlarged. No suspicious free fluid or adenopathy. Urinary bladder unremarkable. Distal colon is unremarkable. IMPRESSION: 1. No evidence for appendicitis. 2. Minimal dilatation of distal small bowel loops. Question minimal thickening versus artifact of the wall of the ascending colon. 3. Narrow umbilical hernia with herniation of fat. 4. Findings discussed by myself with Dr. Kaur at 5:13 PM PST.
--- NOTE | 2019-02-10 20:37 | ER Document Report ---
Entered by CARLA QUILES SCRIBE 02/10/19 9120 Acting as scribe for:NÉSTOR XIONG DO ED GI/ - General Chief Complaint: Abdominal Pain Stated Complaint: FLANK PAIN Time Seen by Provider: 02/10/19 16:13 Primary Care Provider: ERICK VAUGHAN DO [Primary Care Provider] - Follow up tomorrow Mode of Arrival: Ambulatory Information source: Patient Notes: This 33 year old female patient presents to the emergency department today with complaints of flank pain and abdominal pain for the last three days. Patient states the pain has gradually gotten worse since onset. Patient states that she has never had a kidney stone in the past. Patient states that she has noticed that her pain get worse if she lies down flat. Patient complains of some mild nausea as well. Patient denies any dysuria, cough, fevers, or vomiting. TRAVEL OUTSIDE OF THE [place] IN LAST 30 DAYS: No - Related Data Allergies/Adverse Reactions: morphine [Morphine] Allergy (Mild, Verified 08/19/17 15:22) BRITTANI MEDINA Home Medications: No home medications Past Medical History - General Information source: Patient - Social History Smoking Status: Current Every Day Smoker Cigarette use (# per day): Yes Chew tobacco use (# tins/day): No Frequency of alcohol use: Occasional Drug Abuse: None Family History: Reviewed & Not Pertinent Patient has suicidal ideation: No Patient has homicidal ideation: No Renal/ Medical History: Denies: Hx Kidney Stones GI Medical History: Reports: Hx Gastroesophageal Reflux Disease, Hx Hiatal Hernia Musculoskeletal Medical History: Reports Hx Arthritis - RIGHT HAND Past Surgical History: Reports: Hx Abdominal Surgery - Esophageal achalasia repair, Hx Section. Denies: Hx Hysterectomy - Immunizations Hx Diphtheria, Pertussis, Tetanus Vaccination: Yes Review of Systems - Review of Systems Constitutional: denies: Fever EENT: No symptoms reported Cardiovascular: No symptoms reported Respiratory: denies: Cough Gastrointestinal: See HPI, Abdominal pain, Nausea. denies: Vomiting Genitourinary: See HPI, Flank pain. denies: Dysuria Female Genitourinary: No symptoms reported Musculoskeletal: No symptoms reported Skin: No symptoms reported Hematologic/Lymphatic: No symptoms reported Neurological/Psychological: No symptoms reported -: Yes All other systems reviewed and negative Physical Exam - Vital signs Vitals: Temp Pulse Resp BP Pulse Ox 99.1 F 84 20 163/92 H 100 02/10/19 15:26 02/10/19 15:26 02/10/19 15:26 02/10/19 15:26 02/10/19 15:26 Interpretation: Normal - General General appearance: Alert In distress: None - Appears uncomfortable - HEENT Head: Normocephalic, Atraumatic Eyes: Normal Pupils: PERRL - Respiratory Respiratory status: No respiratory distress Chest status: Nontender Breath sounds: Normal Chest palpation: Normal - Cardiovascular Rhythm: Regular Heart sounds: Normal auscultation Murmur: No - Abdominal Inspection: Normal Distension: No distension Bowel sounds: Normal Tenderness: Tender - Right-sided abdominal pain Organomegaly: No organomegaly - Back Back: Normal, Nontender - Extremities General upper extremity: Normal inspection, Nontender, Normal color, Normal ROM, Normal temperature General lower extremity: Normal inspection, Nontender, Normal color, Normal ROM, Normal temperature, Normal weight bearing. No: Augie's sign - Neurological Neuro grossly intact: Yes Cognition: Normal Orientation: AAOx4 [place] Coma Scale Eye Opening: Spontaneous [place] Coma Scale Verbal: Oriented [place] Coma Scale Motor: Obeys Commands [place] Coma Scale Total: 15 Speech: Normal Motor strength normal: LUE, RUE, LLE, RLE Sensory: Normal - Psychological Associated symptoms: Normal affect, Normal mood - Skin Skin Temperature: Warm Skin Moisture: Dry Skin Color: Normal Course - Re-evaluation Re-evalutation: 02/10/19 19:20 Results discussed with patient. She still having some pain. Urine clear. Blood work within normal limits. Right upper quadrant ultrasound within normal limits. Transvaginal ultrasound within normal limits. Patient states that her pain is better but it is still persistent in the right lower quadrant. CT ordered to evaluate appendix. We have had a long discussion about this. Patient was told that she could go home and see how she is feeling always return if she is worse. Prefers at this point to stay for CT. CT is ready for her and nursing staff asked to please help expedite this. 02/10/19 20:37 No evidence for appendicitis on CT. Patient is hungry. Feels welland would like to go home. Return if any worsening or concerning symptoms. Understands and agrees with plan. Stable for discharge. - Vital Signs Vital signs: Temp Pulse Resp BP Pulse Ox 98.3 F 75 16 130/94 H 99 02/10/19 20:18 02/10/19 20:18 02/10/19 20:18 02/10/19 20:18 02/10/19 20:18 - Laboratory Result Diagrams: 02/10/19 17:00 02/10/19 17:00 Laboratory results interpreted by me: 02/10/19 17:00 WBC 11.4 H MCV 99 H MCH 33.5 H - Diagnostic Test Radiology reviewed: Reports reviewed Discharge - Discharge Clinical Impression: Abdominal pain Qualifiers: Abdominal location: right lower quadrant Qualified Code(s): R10.31 - Right lower quadrant pain Condition: Stable Disposition: HOME, SELF-CARE Instructions: Abdominal Pain ([facility]), Nausea or Vomiting, Nonspecific ([facility]) Forms: Return to Work Referrals: ERICK VAUGHAN DO [Primary Care Provider] - Follow up tomorrow I personally performed the services described in the documentation, reviewed and edited the documentation which was dictated to the scribe in my presence, and it accurately records my words and actions.
== END 2019-02-10 20:41 | disposition home or self-care (01) ==
LOC: ER 15:16
DX: R10.31 Right lower quadrant pain (principal); R11.0 Nausea; F17.210 Nicotine dependence, cigarettes, uncomplicated
CPT/HCPCS: 99284; 96361; 96374; 96375; 36415; 83690; 84703; 85025; 80053; 81001; 76705; 76830; 93976; 74177; J3010; J1885; J2405; J7030

== ENCOUNTER 2019-11-03 22:02 | Emergency (ER) | payer BC, OTHER ==
--- NOTE | 2019-11-03 23:44 | ER Document Report ---
Entered by TORIE TELLO SCRIBE 11/03/19 5277 Acting as scribe for:DEAN WEBER IV, MD ED General - General Chief Complaint: Chest Pain Stated Complaint: CHEST PAIN,COUGH,FACE PAIN Primary Care Provider: ERICK VAUGHAN DO [Primary Care Provider] - Follow up as needed Mode of Arrival: Ambulatory Information source: Patient Notes: This 34 year old female patient presents to the ED today with complaints of a painful nonproductive cough for the past x4 days. Patient reports difficulty sleeping due to the cough. She mentions taking Mucinex and Robitussin without relief. Per nursing, patient also complains of a headache and sinus pressure. Denies fever or concerns for COVID. TRAVEL OUTSIDE OF THE [place] IN LAST 30 DAYS: No - Related Data Allergies/Adverse Reactions: morphine [Morphine] Allergy (Mild, Verified 08/19/17 15:22) BRITTANI MEDINA Past Medical History - General Information source: Patient, [facility] Records - Social History Smoking Status: Current Every Day Smoker Smoking Education Provided: No Frequency of alcohol use: Occasional Drug Abuse: None Family History: Reviewed & Not Pertinent Patient has suicidal ideation: No Patient has homicidal ideation: No GI Medical History: Reports: Hx Gastroesophageal Reflux Disease, Hx Hiatal Hernia Musculoskeletal Medical History: Reports Hx Arthritis - RIGHT HAND Past Surgical History: Reports: Hx Abdominal Surgery - Esophageal achalasia repair, Hx Section, Hx Tonsillectomy - Immunizations Hx Diphtheria, Pertussis, Tetanus Vaccination: Yes Review of Systems - Review of Systems Constitutional: See HPI. denies: Fever EENT: See HPI, Sinus pressure Cardiovascular: No symptoms reported Respiratory: See HPI, Cough Gastrointestinal: No symptoms reported Genitourinary: No symptoms reported Female Genitourinary: No symptoms reported Musculoskeletal: No symptoms reported Skin: No symptoms reported Hematologic/Lymphatic: No symptoms reported Neurological/Psychological: See HPI, Headaches -: Yes All other systems reviewed and negative Physical Exam - Vital signs Vitals: Temp Pulse Resp BP Pulse Ox 98.6 F 79 17 157/84 H 100 11/03/19 22:29 11/03/19 22:29 11/03/19 22:29 11/03/19 22:29 11/03/19 22:29 - General General appearance: Appears well, Alert In distress: None - HEENT Head: Normocephalic, Atraumatic Eyes: Normal Pupils: PERRL - Respiratory Respiratory status: No respiratory distress Chest status: Nontender Breath sounds: Normal Chest palpation: Normal - Cardiovascular Rhythm: Regular Heart sounds: Normal auscultation Murmur: No Friction rub: No Gallop: None auscultated - Abdominal Inspection: Normal Distension: No distension Bowel sounds: Normal Tenderness: Nontender - Abdomen soft Organomegaly: No organomegaly - Back Back: Normal, Nontender - Extremities General upper extremity: Normal inspection General lower extremity: Normal inspection - Neurological Neuro grossly intact: Yes Orientation: AAOx4 Walker Coma Scale Eye Opening: Spontaneous [place] Coma Scale Verbal: Oriented Walker Coma Scale Motor: Obeys Commands Walker Coma Scale Total: 15 - Psychological Associated symptoms: Normal affect, Normal mood - Skin Skin Temperature: Warm Skin Moisture: Dry Skin Color: Normal Course - Re-evaluation Re-evalutation: 11/04/19 00:39 Results of ED MSE discussed with patient. All questions were answered prior to discharge. Emergency signs and symptoms, reasons to return to the emergency department discussed with patient. - Vital Signs Vital signs: Temp Pulse Resp BP Pulse Ox 98.6 F 79 17 157/84 H 100 11/03/19 23:06 11/03/19 22:29 11/03/19 22:29 11/03/19 22:29 11/03/19 22:29 - Diagnostic Test Radiology reviewed: Reports reviewed - EKG Interpretation by Me Additional EKG results interpreted by me: 11/04/19 00:12 EKG obtained on 11/03/2019 at 2328 hrs. was interpreted by this MD. Findings normal sinus rhythm, rate 69, normal axis, P waves proceed QRS complexes, QRS complexes. Narrow, there are no obvious patterns of ST segment elevation or depression present to suggest acute myocardial ischemia or infarction. Impression: Normal sinus rhythm with nonspecific ST segments. Discharge - Discharge Clinical Impression: Bronchitis Condition: Stable Disposition: HOME, SELF-CARE Additional Instructions: Bronchitis You have acute bronchitis. This disease is an infection or inflammation of the air passageways in your lungs. Symptoms usually include cough, low grade fever, shortness of breath, and wheezing. The cough usually persists for a couple of weeks. Most cases of bronchitis get better without antibiotics. We prescribe antibiotics when we believe bacteria are damaging your airways, or if there's high risk the bronchitis will worsen into pneumonia. Increase your fluid intake. A cool mist humidifier may make your lungs more comfortable. An expectorant (cough medicine that loosens phlegm) can help. If you smoke, STOP!!! Recovery from bronchitis can be somewhat slow, but you should see improvement within a day or two. Repeated episodes of bronchitis may result in lung damage -- for example, chronic bronchitis, recurrent pneumonias, or emphysema. Call the doctor if you develop increasing fever, shortness of breath, chest pain, bloody sputum, or otherwise worsen. If you have not improved at all after several days, contact the physician. Prescriptions: Hydrocodone/Chlorphen P-Stirex [Hydrocodone-Chlorphen ER Susp] 5 ml PO QHS PRN #60 ml PRN Reason: Cough Benzonatate [Tessalon Perles 100 mg Capsule] 200 mg PO Q8HP PRN #40 capsule PRN Reason: Prednisone [Deltasone 20 mg Tablet] 60 mg PO DAILY #12 tablet Forms: Return to Work Referrals: ERICK VAUGHAN DO [Primary Care Provider] - Follow up as needed I personally performed the services described in the documentation, reviewed and edited the documentation which was dictated to the scribe in my presence, and it accurately records my words and actions.
--- NOTE | 2019-11-04 00:30 | RADIOLOGY REPORT (SQ) ---
CLINICAL INDICATION: cough. TECHNIQUE: A single portable AP view was obtained of the chest at 0004 hours. COMPARISON: August 19, 2017. FINDINGS: The cardiomediastinal silhouette is normal. The lungs are grossly clear. No evidence of effusion or pneumothorax. The visualized bones are unremarkable. IMPRESSION: No evidence of active intrathoracic disease.
[2019-11-04] MEDS ORDERED: PREDNISONE 20 MG TABLET PO ONE (00:40)
[2019-11-04] MEDS ORDERED: BENZONATATE 100 MG CAPSULE PO ONE (00:40)
[2019-11-04] MEDS ORDERED: HYDROCODONE/ACETAMINOPHEN 5-325 MG (6 TAB/ER DISP) PO PRN (00:41)
[2019-11-04 00:53] VITALS: BP 136/90
--- NOTE | 2019-11-04 17:06 | EKG REPORT ---
SEVERITY:- NORMAL ECG - SINUS RHYTHM : Confirmed by: Aster Granado MD 04-Nov-2019 17:05:44
== END 2019-11-04 01:15 | disposition home or self-care (01) ==
LOC: ER 22:02
DX: J40 Bronchitis, not specified as acute or chronic (principal); R05 Cough; R51 Headache; F17.200 Nicotine dependence, unspecified, uncomplicated; R09.89 Other specified symptoms and signs involving the circulatory and respiratory systems; Z88.6 Allergy status to analgesic agent; Z88.5 Allergy status to narcotic agent
CPT/HCPCS: 93005; 99284; 71045; 93010; J7512